=== PATIENT | female | born 1980 | race Caucasian/White ===

== ENCOUNTER 2019-06-22 13:52 | Emergency (ER) | payer SELFPAY ==
--- NOTE | 2019-06-22 14:45 | RAD ---
XR Hand Lt 3 View STANDARD: 06/22/2019 2:03 PM CLINICAL INDICATION: Left hand laceration COMPARISON: None. FINDINGS: Bones: No acute osseous abnormality. Joints: Joint spaces are preserved. Soft Tissue: Soft tissues are normal appearing. No radiopaque foreign body demonstrated IMPRESSION: No acute osseous abnormality..
[2019-06-22] MEDS ORDERED: Lidocaine 1% (PF) 30 ML VIAL ONE (16:52)
[2019-06-22] MEDS ORDERED: Adacel (T-DAP) 0.5 ML SYRINGE ONE ×2 (17:05→17:15)
[2019-06-22] MEDS ORDERED: Ibuprofen 100 MG/5 ML UDCUP ONE (17:05)
[2019-06-22] MEDS ORDERED: Ibuprofen 200 MG TAB ONE (17:06)
[2019-06-22] MEDS ORDERED: Bacitracin 1 PK ONE (17:21)
== END 2019-06-22 17:27 | disposition home or self-care (01) ==
LOC: ERS 13:52
DX: S61.011A Laceration without foreign body of right thumb without damage to nail, initial encounter (principal); F17.210 Nicotine dependence, cigarettes, uncomplicated; Z23 Encounter for immunization; W26.8XXA Contact with other sharp object(s), not elsewhere classified, initial encounter
CPT/HCPCS: 12002; 90471; 90715; J2001

== ENCOUNTER 2020-04-26 18:51 | Emergency (ER) | payer SELFPAY | END 2020-04-26 20:24 | disposition home or self-care (01) | LOC: ERS 18:51 | DX: J02.9 Acute pharyngitis, unspecified (principal); F17.210 Nicotine dependence, cigarettes, uncomplicated | CPT/HCPCS: 99281 ==

== ENCOUNTER 2022-07-28 19:57 | Emergency (ER) | payer SELFPAY ==
[2022-07-29] MEDS ORDERED: Ondansetron ODT 4 MG TAB ONE (00:16)
[2022-07-29] MEDS ORDERED: Ibuprofen 200 MG TAB ONE (00:16)
== END 2022-07-29 04:00 | disposition home or self-care (01) ==
LOC: ERS 19:57
DX: B34.9 Viral infection, unspecified (principal)
CPT/HCPCS: 99283; Q0162